=== PATIENT | male | born 1990 | race Caucasian/White ===

== ENCOUNTER → 2017-02-18 | Outpatient (CLI) | payer BC ==
--- NOTE | 2017-02-18 11:26 | DIAGNOSTIC IMAGING REPORT ---
SI JOINTS 3 OR MORE VIEWS CLINICAL HISTORY: SACROILIITIS pain COMPARISON STUDY: None FINDINGS: Normal study IMPRESSION: Normal study Electronically signed by: Thien Estrada M.D. 02/18/2017 11:25 AM Dictated Date/Time: 02/18/2017 11:24 AM
== END | disposition home or self-care (01) ==
LOC: C.RAD1850 11:12
PROVIDERS: ATTEND Family Medicine
DX: M46.1 Sacroiliitis, not elsewhere classified (principal)